=== PATIENT | male | born 1990 | race African-American/Black ===

== ENCOUNTER 2020-02-10 11:39 | Inpatient (IN) | payer MEDICAID ==
[2020-02-10] VITALS (8 sets, daily range): BP systolic 114–144; BP diastolic 64–101
[~2020-02-10] VITALS: Ht 177.8 cm; Wt 81.6 kg
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
--- NOTE | 2020-02-10 11:48 | NUR ---
CALLED [facility] [phone] ABRASIVES SALES REPRESENTATIVE [address]
--- NOTE | 2020-02-10 11:59 | NUR ---
AT BEDSIDE FOR EVAL.
--- NOTE | 2020-02-10 12:15 | NUR ---
[facility] # [id number] AT BEDSIDE
[2020-02-10] MEDS ORDERED: ACETAMINOPHEN ES 500 MG TABLET PO ONE (12:30)
--- NOTE | 2020-02-10 12:50 | NUR ---
IV LINE ESTABLISHED BLOOD DRAWN AND SENT TO LAB.
--- NOTE | 2020-02-10 12:51 | NUR ---
CALLED DR. ALICIA LEFT MS.
[2020-02-10] MEDS ORDERED: LEVETIRACETAM (500MG) 1,000 MG in IV NS 0.9% 100 ML IV SCH (13:00)
[2020-02-10] MEDS ORDERED: ONDANSETRON HCL/PF 4 MG/2 ML VIAL ONE (13:01)
[2020-02-10 13:02] LABS: BASOPHILS % (AUTO) 0.3 % (0.0-2.0); EOSINOPHILS % (AUTO) 0.1 % (0.0-6.0); HEMATOCRIT 43 % (39-51); HEMOGLOBIN 14.8 g/dL (13.5-17.5); LYMPHOCYTES # (AUTO) 0.7 /CMM (0.8-4.8); LYMPHOCYTES % (AUTO) 8.7 % (20.0-44.0); MEAN CORPUSCULAR HGB CONC 35 g/dl (31.0-36.0); MEAN CORPUSCULAR VOLUME 98 fL (80-96); MONOCYTES # (AUTO) 0.5 /CMM (0.1-1.30); MONOCYTES % (AUTO) 6.5 % (2.0-12.0); NEUTROPHILS # (AUTO) 6.6 /CMM (1.8-8.9); NEUTROPHILS % (AUTO) 84.4 % (43.0-81.0); PLATELET COUNT (AUTO) 137 /CMM (150-450); RED BLOOD CELL COUNT(AUTO) 4.36 MIL/uL (4.5-6.0); WHITE BLOOD COUNT (AUTO) 7.8 K/uL (4.3-11.0)
[2020-02-10 13:12] LABS: CREATININE 0.8 mg/dL (0.6-1.3); POTASSIUM 3.4 mmol/L (3.5-5.1)
[2020-02-10 13:17] LABS: ALBUMIN 4.1 g/dL (3.4-5.0); BILIRUBIN,DIRECT 0.2 mg/dL (0.0-0.2); BILIRUBIN,TOTAL 0.8 mg/dL (0.2-1.0); TOTAL PROTEIN, SERUM 7.8 g/dL (6.4-8.2)
--- NOTE | 2020-02-10 13:19 | NUR ---
CALLED Reshma Justice, DO DR. KOLB IS THE DIRECTOR EXPERIMENTAL MEDICINE. DR. RON IS SPEAKING WITH DIRECTOR EXPERIMENTAL MEDICINE MD FOR CONSULT.
--- NOTE | 2020-02-10 14:17 | NUR ---
AWILDA CALLED PT TO BE TRANSFERED
--- NOTE | 2020-02-10 15:49 | NUR ---
ROOM [id number]
--- NOTE | 2020-02-10 16:11 | NUR ---
REPORT GIVEN TO ESTHELA CHASE FOR RENAN. AWAITING TRANSFER TO FLOOR.
--- NOTE | 2020-02-10 16:45 | NUR ---
DIRECTOR ENGINEERING NOTES RECEIVED PT FROM ER, AAO X 3, DIC INTRACEREBRAL HEMORRHAGE BY DR. MARTINEZ. DR. [facility]IS[facility] NEUROSURGEON FOR CONSULT DONE EARLIER AT ER. HEMATOMA AT OCCIPUT. SR ON MONITOR. HR 82, DENIES CHEST PAIN OR DISCOMFORT AT THIS TIME. RAC G 18 FLUSHES WELL, SITE CLEAR. AMBULATORY BUT BEDREST FOR NOW. URINAL AT BEDSIDE. UNIT ORIENTATION AND USE OF CALL LIGHT DONE VERBALIZED UNDERSTANDING. SAFETY MEASURES IN PLACE. BED LOW LOCKED. WILL CONT TO MONITOR. PATIENT SUPPOSED TO BE TRANSFERRED TO [facility], BUT SINCE THERE IS NO BED AND PATIENT IS STABLE, PER DR. KAISER, MAY ADMIT PATIENT FOR THE NIGHT AND HE WILL THE PATIENT TOMORROW.
[2020-02-10] MEDS ORDERED: ACETAMINOPHEN 325 MG TABLET PO PRN (17:00)
[2020-02-10] MEDS ORDERED: MAGNESIUM HYDROXIDE 30 ML UDC PO PRN (17:00)
[2020-02-10] MEDS ORDERED: MAG HYDROX/AL HYDROX/SIMETH 30 ML UDC PO PRN (17:00)
[2020-02-10] MEDS ORDERED: Z GUARD REMEDY 2 OZ OINT TP PRN (17:00)
[2020-02-10] MEDS: HYDROCODONE/APAP 5/325MG 1 EACH TABLET PO PRN (19:01)
--- NOTE | 2020-02-10 19:21 | NUR ---
CURTAIN CLEANER NOTES ALL NEEDS MET AT THIS TIME. PT WATCHING TV. NORCO GIVEN FOR HEADACHE. ENDORSED TO NEXT SHIFT FOR RENAN.
[2020-02-10] MEDS: ONDANSETRON HCL/PF 4 MG/2 ML VIAL IVP PRN (19:53)
[2020-02-10] MEDS: LEVETIRACETAM (250 MG) 250 MG TABLET PO SCH (21:23)
[2020-02-11] VITALS (36 sets, daily range): BP systolic 50–165; BP diastolic 25–111
[2020-02-11 04:26] LABS: BASOPHILS % (AUTO) 0.4 % (0.0-2.0); EOSINOPHILS % (AUTO) 0.5 % (0.0-6.0); HEMATOCRIT 45 % (39-51); HEMOGLOBIN 15.5 g/dL (13.5-17.5); LYMPHOCYTES # (AUTO) 0.6 /CMM (0.8-4.8); LYMPHOCYTES % (AUTO) 12.6 % (20.0-44.0); MEAN CORPUSCULAR HGB CONC 34 g/dl (31.0-36.0); MEAN CORPUSCULAR VOLUME 99 fL (80-96); MONOCYTES # (AUTO) 0.5 /CMM (0.1-1.30); MONOCYTES % (AUTO) 9.8 % (2.0-12.0); NEUTROPHILS # (AUTO) 3.9 /CMM (1.8-8.9); NEUTROPHILS % (AUTO) 76.7 % (43.0-81.0); PLATELET COUNT (AUTO) 137 /CMM (150-450); RED BLOOD CELL COUNT(AUTO) 4.56 MIL/uL (4.5-6.0); WHITE BLOOD COUNT (AUTO) 5.1 K/uL (4.3-11.0)
[2020-02-11 04:43] LABS: CALCIUM, SERUM 9.5 mg/dL (8.5-10.1); CREATININE 0.9 mg/dL (0.6-1.3); MAGNESIUM 2.3 mg/dL (1.8-2.4); PHOSPHORUS 3.1 mg/dL (2.5-4.9); POTASSIUM 3.7 mmol/L (3.5-5.1)
--- NOTE | 2020-02-11 07:50 | NUR ---
SUPERINTENDENT PLANT: per night nurse Sasha report: no bed available now in [facility] for transfer, window caser is on case, continue pt.monitoring with neuro assessment
--- NOTE | 2020-02-11 08:00 | NUR ---
INTAKE ASSESSOR: pt.is A/Ox4, can follow commands well, symmetric activity, pupils R/E, c/o headache 5-04/14, same painful L.occipital area palpation, SR, SBP below 160, over 100, O2sat WNL on r/a, voids well by report, same neuro status over night by night nurse report, oriented for POC, fall/injury prevention measures
--- NOTE | 2020-02-11 08:05 | NUR ---
MARKETING REPORTING ANALYST: regular diet by night nurse report, can swallow well
--- NOTE | 2020-02-11 08:10 | NUR ---
MACHINE STRIPPER: checked ER, MD notes: is on case, ER MD spoke with, is on case
[2020-02-11] MEDS: HYDROCODONE/APAP 5/325MG 1 EACH TABLET PO PRN ×3 (08:46→20:01)
[2020-02-11] MEDS: LEVETIRACETAM (250 MG) 250 MG TABLET PO SCH ×2 (08:46→21:20)
[2020-02-11] MEDS: ONDANSETRON HCL/PF 4 MG/2 ML VIAL IVP PRN (09:34)
--- NOTE | 2020-02-11 09:40 | NUR ---
MANAGER REGIONAL SALES: head CT done, pt.c/o nausea now, Zofran 4mg prn+
--- NOTE | 2020-02-11 10:20 | NUR ---
ELECTROTYPER: second head CT done: No substantial change in epidural hematoma in the left posterior fossa. Stable mass effect on the fourth ventricle with no evidence of obstructive hydrocephalus.
--- NOTE | 2020-02-11 10:55 | NUR ---
FUEL HOUSE ATTENDANT: pt mother called/updated
--- NOTE | 2020-02-11 14:25 | NUR ---
CONSERVATOR ARTIFACTS: pt c/o headache 5-04/14, Sheryl dixon
--- NOTE | 2020-02-11 17:27 | NUR ---
PROPELLER LAYOUT WORKER: pt is A/Ox4, no c/o now, same neurostatus, SR/SB/lower50, SBP over 90 below 160, O2sat. over 94%, pt.refused for bedbath, pt.father called/updated
--- NOTE | 2020-02-11 20:10 | NUR ---
Received patient AAOX4.Dx: ICH.Neuro status intact.Follows commands.Independent with ADL. Encouraged bedrest and HOB elevated.SR per monitor.Normotensive.On RA SAT 98%.Respiration even and unlabored.Patient c/o headache 07/15 PRN pain medicine [place] administered.Denies nausea or vomiting.Care explained.Verbalized understanding.Safety precaution maintained.Bed low,locked,side rails up and call light at bedside.Continue monitoring.
--- NOTE | 2020-02-11 21:30 | NUR ---
Patient resting verbalized pain subsiding.Continue monitoring.
[2020-02-12] VITALS (29 sets, daily range): BP systolic 110–165; BP diastolic 51–115
--- NOTE | 2020-02-12 | NUR ---
Patient doze off and on.VS remains stable.Denies pain at this time..
[2020-02-12] MEDS: HYDROCODONE/APAP 5/325MG 1 EACH TABLET PO PRN ×5 (04:04→22:45)
--- NOTE | 2020-02-12 04:05 | NUR ---
Patient awake c/o pain occipital and right temporal area 8/10.PRN pain medication administered. Verbalized feels nauseated and feels tired but refused Zofran no vomiting noted.Refused bed bath at this time.
[2020-02-12 04:11] LABS: BASOPHILS % (AUTO) 0.6 % (0.0-2.0); EOSINOPHILS % (AUTO) 0.5 % (0.0-6.0); HEMATOCRIT 46 % (39-51); HEMOGLOBIN 16.2 g/dL (13.5-17.5); LYMPHOCYTES # (AUTO) 0.8 /CMM (0.8-4.8); LYMPHOCYTES % (AUTO) 12.4 % (20.0-44.0); MEAN CORPUSCULAR HGB CONC 35 g/dl (31.0-36.0); MEAN CORPUSCULAR VOLUME 98 fL (80-96); MONOCYTES # (AUTO) 0.4 /CMM (0.1-1.30); MONOCYTES % (AUTO) 7.1 % (2.0-12.0); NEUTROPHILS # (AUTO) 4.9 /CMM (1.8-8.9); NEUTROPHILS % (AUTO) 79.4 % (43.0-81.0); PLATELET COUNT (AUTO) 138 /CMM (150-450); RED BLOOD CELL COUNT(AUTO) 4.72 MIL/uL (4.5-6.0); WHITE BLOOD COUNT (AUTO) 6.2 K/uL (4.3-11.0)
--- NOTE | 2020-02-12 07:22 | NUR ---
Patient resting.Neuro status intact.VSS.No further complaints presented.Still for CT HEAD W/O CONTRAST.Endorsed to day shift for maria e.
--- NOTE | 2020-02-12 07:58 | NUR ---
WOOD HEEL FLAP INSERTER: pt is A/Ox4 now, rest, no c/o now, got [facility] x2 over night d/t headache, generally said: feel little better, neurostatus intact, symmetric legs,arms activity, pupils R/E, SR/SB, SBP over 90 below 160, O2sat. over 94%, voids, PIVL patent, labs: no critical, plan: head CT wo contrast
--- NOTE | 2020-02-12 08:15 | NUR ---
TURF MANAGER: over night head pain had different location , L.occipital, R.frontal, temporal, tolerated for relieve by pain meds, spoke with Radiology dep./waiting head CT
[2020-02-12] MEDS: LEVETIRACETAM (250 MG) 250 MG TABLET PO SCH ×2 (08:19→21:23)
--- NOTE | 2020-02-12 08:24 | NUR ---
RN will call Radiology when ready to transport patient for CT HEAD W/O study.
[2020-02-12] MEDS: ONDANSETRON HCL/PF 4 MG/2 ML VIAL IVP PRN ×2 (10:59→20:04)
--- NOTE | 2020-02-12 11:00 | NUR ---
NICKER AND BREAKER: [facility] d/t headache(R.temporal,frontal,L.occipital), pt.wants to speak with MD after head CT, charge nurse spoke with pt.family re POC, with case management dep/possible transfer
--- NOTE | 2020-02-12 11:30 | NUR ---
CALL PERSON: CT head done, radiology dep.called to get consent for CTA brain/CTV per order, pt is agree for consent, spoke with pt/pt mother: no any allergy, included Iodine, fish
--- NOTE | 2020-02-12 11:40 | NUR ---
SHAREPOINT MANAGER: Radiology dep. asked to place in IVPL at least 20G, pt.has RFA PIVL G18 and to do order correction: no CTA brain, need CT brain with contrast
--- NOTE | 2020-02-12 12:08 | NUR ---
ROOFING SUBCONTRACTOR: spoke with radiology department to verify with MD order: CTA or CT brain with contrast to eval CTV per order in comp, pt needs explanation re risks/benefits
[2020-02-12] MEDS ORDERED: CT SWABBABLE VALVE TRANS SET 1 EA INFUS.SET MC ONE (12:20)
[2020-02-12] MEDS ORDERED: IOHEXOL-350 100 ML VIAL IV ONE (12:20)
[2020-02-12] MEDS ORDERED: IV NS 0.9% 250 ML IV ONE (12:20)
--- NOTE | 2020-02-12 12:35 | NUR ---
REHAB SERVICES AIDE: sent message for to change CTA brain order to CT brain with contrast, RD explained: cant get venous imagination for CTV with CTA brain
--- NOTE | 2020-02-12 12:44 | NUR ---
Spoke with RENA Cruz at 1240 by phone. RN will call ordering MD to modify order from CTA Brain to CT Brain with IV Contrast to evaluate the CTV phase. Please call Radiology when ready.
--- NOTE | 2020-02-12 12:45 | NUR ---
HATCHERY LABORER: charge nurse called to /sent message
--- NOTE | 2020-02-12 14:50 | NUR ---
MACHINIST CLASS B: CTbrain with contrast done/tolerated well
--- NOTE | 2020-02-12 15:50 | NUR ---
EQUIPMENT SPECIALIST: Vik Hernandez RD, MD called with CT brain result: sinus thrombosis+, will page
--- NOTE | 2020-02-12 16:10 | NUR ---
INVESTMENT ACCOUNTANT: sent message for , re RD MD call/sinus thrombosis+, to see CT brain with contrast result
--- NOTE | 2020-02-12 16:35 | NUR ---
PUBLIC SCHOOL TEACHER: notified re sinus thrombosis+, to see CTA brain result
--- NOTE | 2020-02-12 20:24 | NUR ---
curriculum coach. initial assessment. received the pt rest on the bed. awake, alert. follow commands. ekg monitor tech showing nsr. iv rt ac 18g. saline lock. pt is room air. sat 96%. no acute distress noted, will continue to monitor vitals.
--- NOTE | 2020-02-12 20:26 | NUR ---
olericulture professor. pt c/o nausea. zofran given per ordered
[2020-02-13] VITALS (10 sets, daily range): BP systolic 120–160; BP diastolic 62–93
--- NOTE | 2020-02-13 05:27 | NUR ---
agricultural economics teacher. pt slept well during shift. pt is room air, sat 98%, no acute distress noted, air sampling and monitoring showing nsr. iv lt hand, saline lock. during shift mental status no changed.will continue to monitor
--- NOTE | 2020-02-13 07:26 | NUR ---
transfer the pt to room 102. report given to didi wilder. pt is stable,
[2020-02-13] MEDS: HYDROCODONE/APAP 5/325MG 1 EACH TABLET PO PRN (07:34)
--- NOTE | 2020-02-13 07:59 | NUR ---
AUTO PARKER NOTE PATIENT TRANSFERRED TO ROOM 102 VIA BED ACLS PROTOCOL FOLLOWED. ALL BELONGINGS WITH PATIENT. PATIENT C/O 8/10 HEADACHE, PRN NORCO WAS GIVEN.
[2020-02-13] MEDS: ONDANSETRON HCL/PF 4 MG/2 ML VIAL IVP PRN (08:32)
[2020-02-13] MEDS: LEVETIRACETAM (250 MG) 250 MG TABLET PO SCH (08:32)
[2020-02-13] MEDS ORDERED: LEVE250T2 PO (11:02)
--- NOTE | 2020-02-13 13:33 | NUR ---
RN NOTES PATIENT HAS BEEN DISCHARGED IN STABLE CONDITION. PT STILL COMPLAINS OF HEADACHE BUT EXPLAINED TO PT THAT IT IS TO BE EXPECTED FOLLOWING HEAD INJURY. MEDICATION PRESCRIPTION GIVEN FOR CASIMIRO, EXPLAINED REGIMEN TO PATIENT. EXIT CARE WAS UTILIZED DURING THE DC PROCESS, BELONGINGS LIST WAS CHECKED OFF, IV SITE WAS REMOVED, TELE BOX WAS REMOVED. INFORMATION REGARDING FOLLOW UP APPT WITH DR. KAISER GIVEN TO PATIENT
== END 2020-02-13 13:38 | disposition home or self-care (01) | DRG 55 ==
LOC: ER 11:45 → ICU 15:59 → TELE1 02-13 08:05
PROVIDERS: ADMIT Internal Medicine; ATTEND Internal Medicine
DX: S06.4X0A Epidural hemorrhage without loss of consciousness, initial encounter (principal); G93.89 Other specified disorders of brain; R40.2411 Glasgow coma scale score 13-15, in the field [EMT or ambulance]; S06.5X0A Traumatic subdural hemorrhage without loss of consciousness, initial encounter; S02.119A Unspecified fracture of occiput, initial encounter for closed fracture; S06.6X0A Traumatic subarachnoid hemorrhage without loss of consciousness, initial encounter; Y08.89XA Assault by other specified means, initial encounter; Y92.89 Other specified places as the place of occurrence of the external cause; M48.02 Spinal stenosis, cervical region
CPT/HCPCS: 36415; 70450-TC; 70496-TC; 71045-TC; 72125-TC; 80048-TC; 80076-TC; 80305; 83735-TC; 84100-TC; 85025-TC; 85610-TC; 85730-TC; 86850-TC; 87081-TC; G0378; G0480; J1953; J2405; J7030; J7050; Q9967